=== PATIENT | male | born 1985 | race African-American/Black ===

== ENCOUNTER 2021-03-27 10:22 | Emergency (ER) | payer SELFPAY ==
[~2021-03-27] VITALS: Ht 188 cm; Wt 63.6 kg
[2021-03-27 18:38] VITALS: BP 159/103
[2021-03-27] MEDS ORDERED: ketorolac tromethamine 15mg/ml inj. IM ONE (19:00)
[2021-03-27] MEDS ORDERED: HYDR-3686 PO (19:07)
== END 2021-03-27 19:32 | disposition home or self-care (01) ==
LOC: ER 10:25
DX: K64.9 Unspecified hemorrhoids (principal); B02.9 Zoster without complications; R06.02 Shortness of breath; F17.200 Nicotine dependence, unspecified, uncomplicated; F12.90 Cannabis use, unspecified, uncomplicated; Z72.89 Other problems related to lifestyle; Z79.899 Other long term (current) drug therapy
CPT/HCPCS: 96372; 99283; J1885